=== PATIENT | female | born 1945 | race Caucasian/White ===

== ENCOUNTER → 2016-05-26 | Outpatient (CLI) | payer MEDICARE, OTHER ==
--- NOTE | 2016-05-26 13:08 | KCIC ---
PQRS STATEMENT One or more of the following individualized dose reduction techniques were utilized for this study:1.Automated exposure control. 2.Adjustment of the mA and/orkVaccording to patient size. 3.Use of iterative reconstruction technique CT chest. Indication: Reason For Study Reason: Productive cough for 8-10 weeks / Spl. Instructions: / History: Smoker TECHNIQUE Multiple contiguous axial images were obtained through the chest. Coronal reformations were created. Comparison: CT chest from May 21, 2015 Findings: There is no axillary adenopathy. Evaluation of the mediastinum and sherri are limited in the absence of IV contrast but no gross adenopathy is identified. The heart size is normal. There is no pericardial effusion. Coronary artery calcifications are noted. The thoracic aorta is normal in caliber. The lungs are clear with no evidence for infiltrate or consolidation. There is no pleural effusion or pneumothorax. Limited subdiaphragmatic evaluation is unremarkable. No destructive osseous lesion is identified. Impression: - Coronary artery disease. - No evidence for heart failure or pneumonia. Electronically signed by: Tenzin Syed (May 26, 2016 13:07:00)
== END | disposition home or self-care (01) ==
LOC: KCIC CT 10:42
PROVIDERS: ATTEND Internal Medicine Pulmonary Disease
DX: R05 Cough (principal); Z87.891 Personal history of nicotine dependence
CPT/HCPCS: 71250

== ENCOUNTER → 2016-06-04 | Outpatient (CLI) | payer MEDICARE, OTHER ==
--- NOTE | 2016-06-04 15:22 | KCIC ---
PROCEDURE Bilateral carotid duplex Doppler ultrasound. HISTORY Hypertension, smoker, carotid artery disease. TECHNIQUE Duplex sonography of the cervical portion of both carotid arteries was performed including color flow imaging and spectral waveform analysis with flow velocity measurement and mcmullen scale evaluation. COMPARISON None. FINDINGS Right side: Peak systolic flow velocity of the distal CCA is 59 cm/sec. Peak systolic flow velocity of the ICA is 92 cm/sec. Thus, the ICA/CCA ratio is 1.6. Peak end diastolic flow velocity of the ICA is 25 cm/sec. The peak systolic velocity of the ECA is 61 cm/sec. Left side: Peak systolic flow velocity of the distal CCA is 57 cm/sec. Peak systolic flow velocity of the ICA is 70 cm/sec. Thus, the ICA/CCA ratio is 1.2. Peak end diastolic flow velocity of the ICA is 29 cm/sec. Peak systolic flow velocity of the ECA is 47 cm/sec. No significant plaque formation is identified. Antegrade vertebral flow is seen bilaterally. IMPRESSION No evidence of hemodynamically significant internal carotid artery stenosis. PQRS compliance statement: Stenosis calculations for CT, MR and conventional angiography are based upon measurement of the distal ICA diameter in accordance with the NASCET methodology. Stenosis calculations for carotid ultrasound studies are derived from validated velocity criteria which are known to correlate with the NASCET methodology. Electronically signed by: David Ferreira MD (Jun 04, 2016 15:20:51)
== END | disposition home or self-care (01) ==
LOC: KCIC US 12:53
PROVIDERS: ATTEND Family Medicine
DX: I65.23 Occlusion and stenosis of bilateral carotid arteries (principal); Z72.0 Tobacco use
CPT/HCPCS: 93880

== ENCOUNTER → 2017-06-22 | Outpatient (CLI) | payer MEDICARE, OTHER | END | disposition home or self-care (01) | LOC: KCIC CT 10:52 | DX: J44.9 Chronic obstructive pulmonary disease, unspecified (principal); I25.10 Atherosclerotic heart disease of native coronary artery without angina pectoris; Z87.891 Personal history of nicotine dependence | CPT/HCPCS: 71250 ==

== ENCOUNTER → 2017-07-17 | Outpatient (CLI) | payer MEDICARE, OTHER | END | disposition home or self-care (01) | LOC: KCIC MRI 14:50 | DX: M51.37 Other intervertebral disc degeneration, lumbosacral region (principal); M48.061 Spinal stenosis, lumbar region without neurogenic claudication; M47.897 Other spondylosis, lumbosacral region; M25.78 Osteophyte, vertebrae; D18.09 Hemangioma of other sites; G89.29 Other chronic pain; R53.1 Weakness | CPT/HCPCS: 72148 ==

== ENCOUNTER → 2017-07-29 | Outpatient (CLI) | payer MEDICARE, OTHER ==
[~2017-07-29] MED LIST: IOHEXOL 180 MG/ML 10 ML VIAL.; methylPREDNISolone ACETATE 40 MG/ML VIAL.; methylPREDNISolone ACETATE 80 MG/ML VIAL.
== END ==
LOC: PNCL 11:24
DX: M51.16 Intervertebral disc disorders with radiculopathy, lumbar region (principal); M48.061 Spinal stenosis, lumbar region without neurogenic claudication; E11.9 Type 2 diabetes mellitus without complications; I10 Essential (primary) hypertension; I25.10 Atherosclerotic heart disease of native coronary artery without angina pectoris; K50.90 Crohn's disease, unspecified, without complications; J44.9 Chronic obstructive pulmonary disease, unspecified; M47.9 Spondylosis, unspecified; F17.210 Nicotine dependence, cigarettes, uncomplicated; E66.9 Obesity, unspecified; Z79.82 Long term (current) use of aspirin; M19.90 Unspecified osteoarthritis, unspecified site; Z91.018 Allergy to other foods; Z79.899 Other long term (current) drug therapy
CPT/HCPCS: 62323; J1030; J1040; Q9965

== ENCOUNTER → 2017-08-12 | Outpatient (CLI) | payer MEDICARE, OTHER | LOC: PNCL 09:58 | DX: M51.16 Intervertebral disc disorders with radiculopathy, lumbar region (principal) | CPT/HCPCS: 62323; J1030; J1040; Q9965 ==

== ENCOUNTER → 2017-09-15 | Outpatient (CLI) | payer MEDICARE, OTHER ==
[2017-09-16] MEDS: REGADENOSON 0.4 MG/5 ML DISP.SYRIN. IV (10:55)
== END | disposition home or self-care (01) ==
LOC: NM 08:30
DX: R07.9 Chest pain, unspecified (principal); R06.00 Dyspnea, unspecified; J44.9 Chronic obstructive pulmonary disease, unspecified; I10 Essential (primary) hypertension; R56.9 Unspecified convulsions; Z87.891 Personal history of nicotine dependence
CPT/HCPCS: 78452; 93017; 93306; 96374; 96375; 96376; A9500; J2785

== ENCOUNTER → 2017-10-29 | Outpatient (CLI) | payer MEDICARE, OTHER | END | disposition home or self-care (01) | LOC: KCIC 10:14 | DX: M19.011 Primary osteoarthritis, right shoulder (principal) | CPT/HCPCS: 73030 ==

== ENCOUNTER → 2017-11-26 | Outpatient (CLI) | payer MEDICARE, OTHER | END | disposition home or self-care (01) | LOC: KCIC MRI 12:42 | DX: M75.101 Unspecified rotator cuff tear or rupture of right shoulder, not specified as traumatic (principal) | CPT/HCPCS: 73221 ==

== ENCOUNTER → 2018-06-21 | Outpatient (CLI) | payer MEDICARE, OTHER ==
[~2018-06-21] MED LIST changes: +ACET-704 PO; +ASPI-482 PO; +ATOR20TA58 PO; +BENADRYL; +DIPH1TAB PO; +DULO60CA6 PO; +FLUT1DIS3 IH; +IBUP-1060 PO; -IOHEXOL 180 MG/ML 10 ML VIAL.; +IPRA3AMP29 NEB; +LISI10TA2 PO; +METH-38 PO; +MULT1TAB52 PO; +OMEG1CAP6 PO; +PRIM50TA PO; +SINUS; +TOPI100T8 PO; +TRIA10.8 NS; -methylPREDNISolone ACETATE 40 MG/ML VIAL.; -methylPREDNISolone ACETATE 80 MG/ML VIAL.
--- NOTE | 2018-06-21 14:49 | KCIC ---
CT CHEST WO CONTRAST Indication: Follow-up lung nodule, history of emphysema. Exposure: One or more of the following individualized dose reduction techniques were utilized for this examination: 1. Automated exposure control 2. Adjustment of the mA and/or kV according to patient size 3. Use of iterative reconstruction technique. Comparison: June 22, 2017 Contrast: None FINDINGS: Vascular structures: Limited exam without contrast. Mild aortic calcifications. No gross aneurysm. Lymph nodes:No significant enlargement Thyroid gland:Visualized aspect is unremarkable. Heart: Mild coronary artery calcifications Esophagus: Unremarkable Pleural spaces: No significant effusion Lungs: Tiny left upper lobe pulmonary nodule measures 3 mm. It is difficult to be certain if this is the same nodule, largest another nodule in the same area. No other masses are identified. No consolidated infiltrate. Trachea and central airways: Patent Spine: Degenerative spurring. Bones: No destructive process. Upper abdomen: Slices obtained through the upper most abdomen are limited by the noncontrast technique. No obvious acute findings. External Soft Tissue: No acute findings. Impression: 1. 3 mm left upper lobe pulmonary nodule, probably the same nodule as was seen previously, without increase in size. No new or larger nodule identified on today's exam. 2. No acute findings. Electronically signed by: Abhi Melendrez MD (06/21/2018 2:44 PM) [facility]
== END | disposition home or self-care (01) ==
LOC: KCIC CT 09:58
PROVIDERS: ATTEND Internal Medicine Pulmonary Disease
DX: R91.1 Solitary pulmonary nodule (principal); I70.0 Atherosclerosis of aorta; I25.10 Atherosclerotic heart disease of native coronary artery without angina pectoris; M46.04 Spinal enthesopathy, thoracic region; Z87.09 Personal history of other diseases of the respiratory system; Z87.891 Personal history of nicotine dependence
CPT/HCPCS: 71250

== ENCOUNTER → 2019-05-24 | Outpatient (CLI) | payer MEDICARE, OTHER ==
--- NOTE | 2019-05-25 23:46 | SLEEP ---
DATE OF STUDY: SLEEP STUDY ATTENDING PHYSICIAN: Butch Patel MD INDICATIONS FOR STUDY: The patient is a 73-year-old, who weighs 225 pounds with the body mass index of 41. The patient's Driscoll score was 11. The patient underwent split night study performed at [facility]. FINDINGS: During the night study, the patient spent 423 minutes in bed and slept for 331 minutes with a sleep efficiency of 78%. Sleep latency was 5 minutes with a REM latency of 284 minutes. Sleep architecture showed increased stage 1 and stage 2 sleep, normal slow wave, and normal REM sleep. During the initial diagnostic portion of the study, the patient slept for 106 minutes. During that time, the patient had 6 obstructive apneas, 46 mixed apneas, 16 central apneas, and 11 hypopneas. The patient's apnea-hypopnea index was 45 per hour with a supine index of 136 per hour. REM sleep was not seen during the diagnostic portion. EKG monitoring revealed an average heart rate of 79 beats per minute; no sustained arrhythmias observed. Periodic limb movements were seen at index of 2 per hour and none caused EEG arousals. Nocturnal oximetry study revealed an average oxygen saturation of 90% with the lowest of 83% and 65% of the time oxygen saturation remained between 80% and 89%. The patient met the criteria for CPAP initiation. It was started at 5 cm water and titrated up to 9 cm water. At the final pressure, the patient slept for 195 minutes. The patient had lateral REM sleep. The patient's apnea-hypopnea index was reduced to 1 per hour. Oxygen saturations remained mostly above 88%. The patient used medium-sized full face mask. IMPRESSION: 1. Severe sleep apnea-hypopnea syndrome at an apnea-hypopnea index of 45 per hour. 2. Nocturnal hypoxia secondary to obstructive sleep apnea and hypoventilation. 3. No clinically significant periodic limb movements. RECOMMENDATIONS: 1. CPAP at 9 cm water completely eliminated the patient's sleep apnea and should be used on a nightly basis. 2. Follow up in 4-6 weeks to assess compliance with CPAP and to document clinical improvement. 3. Weight loss is strongly advised. 4. Avoid [employer] depressants. 5. Cautioned regarding driving until symptoms of sleep apnea resolve with the use of CPAP. VERENICE VALDIVIA MD DR: NITA/faiza JOB#: [id number] / [id number] BUTCH Peralta MD
== END | disposition home or self-care (01) ==
LOC: SLPLAB 18:53
PROVIDERS: ATTEND Family Medicine
DX: G47.33 Obstructive sleep apnea (adult) (pediatric) (principal); G47.34 Idiopathic sleep related nonobstructive alveolar hypoventilation
CPT/HCPCS: 95810

== ENCOUNTER → 2020-01-16 | Outpatient (CLI) | payer MEDICARE, OTHER ==
[~2020-01-16] MED LIST changes: +MULT-445 PO; -MULT1TAB52 PO
--- NOTE | 2020-01-16 11:10 | KCIC ---
CT LOW DOSE LUNG SCREENING INDICATION: Reason: SMOKER, LUNG CANCER SCREENING. Smoker of over 50 yrs., 1.5 packs per day. Baseline lung screening. COMPARISON STUDY: Diagnostic CT chest 06/21/2018. TECHNIQUE: Unenhanced axial images were obtained through the lungs and upper abdomen using low dose technique. Coronal and sagittal multiplanar reformatted images were also obtained. PQRS compliance statement: One or more of the following individualized dose reduction techniques were utilized for this examination: 1. Automated exposure control 2. Adjustment of the mA and/or kV according to patient size 3. Use of iterative reconstruction technique FINDINGS: Lungs and Airways: Mild scattered bilateral centrilobular groundglass nodules with a few areas of ground glass opacity. Normal central airways. Pleura: Normal pleural spaces. Heart and Mediastinum: The visualized portions of the thyroid gland are normal in size and attenuation. No axillary or supraclavicular lymphadenopathy. No mediastinal, hilar or retrocrural lymphadenopathy. Normal cardiac size. Trace pericardial fluid, likely physiologic. Coronary artery atherosclerotic disease. Atherosclerosis of the thoracic aorta and branch vessels. Abdomen: The visualized abdominal organs demonstrate no abnormality. Bones and Soft Tissues: Degenerative changes of the spine. IMPRESSION: Mild scattered bilateral centrilobular groundglass nodules with a few areas of groundglass opacity, likely an infectious/inflammatory process. Lung-RADS Category: 2 Management Recommendation: Follow up low-dose chest CT in one year. Electronically signed by: French Albarran MD (01/16/2020 11:07 AM) [id number]
== END | disposition home or self-care (01) ==
LOC: KCIC CT 09:31
PROVIDERS: ATTEND Internal Medicine Pulmonary Disease
DX: Z12.2 Encounter for screening for malignant neoplasm of respiratory organs (principal); F17.210 Nicotine dependence, cigarettes, uncomplicated; R91.8 Other nonspecific abnormal finding of lung field; M47.819 Spondylosis without myelopathy or radiculopathy, site unspecified; I70.0 Atherosclerosis of aorta; I25.10 Atherosclerotic heart disease of native coronary artery without angina pectoris
CPT/HCPCS: G0297

== ENCOUNTER → 2020-07-26 | Outpatient (CLI) | payer MEDICARE, OTHER ==
[~2020-07-26] MED LIST changes: +GADOTERATE 7.5 MMOL/15ML VIAL. IVP ONE; +LISI10TA16 PO; -LISI10TA2 PO
--- NOTE | 2020-07-26 15:16 | KCIC ---
MRI of the Brain and orbits without and with Contrast 07/27/2011 Clinical History: Right eye proptosis for 4 months. Headaches. Technique: Unenhanced T1-weighted sagittal and axial and FLAIR, T2-weighted, gradient echo and diffus ion-weighted axial images of the brain were obtained. Additionally fat saturated thin section T1-weig hted axial and coronal and thin section T2 weighted coronal with and without fat saturation images th rough the orbits were obtained After the intravenous administration of 14 cc of CLARISCAN, enhanced T 1-weighted axial and coronal images of the brain were obtained. Additionally thin section fat saturat ed T1-weighted axial and coronal images through the orbits were obtained. Findings: There is generalized parenchymal atrophy. Patchy and several small scattered areas of incre ased signal intensity are seen within the periventricular and subcortical white matter of both cerebr al hemispheres along with the jose l on the FLAIR and T2-weighted images consistent with areas of small vessel ischemic disease. A small focal area of decreased signal intensity is seen involving left cer ebellar hemisphere on the gradient echo images. This measures 3 mm in size. There is no surrounding e ethan or associated mass affect. This most likely represents a cavernous angioma. No acute parenchymal abnormality is seen. No extra axial fluid collection is noted. There is no MRI e vidence of acute ischemia/infarction. Images through the orbits demonstrate the globes, extraocular muscles, optic nerve sheath complexes, optic chiasm and visualized portions of the optic tracts to be within normal limits. No abnormal soft tissue mass or area of abnormal contrast enhancement is noted. Mild mucosal thickening is seen scattered throughout the paranasal sinuses. There are minimal bilater al mastoid effusions. Normal flow voids are seen within the major vascular structures surrounding the brain parenchyma. IMPRESSION: 1. No acute parenchymal abnormality is seen. 2. Negative MRI of the orbits. Electronically signed by: Ankit Horn MD (07/26/2020 3:14 PM) [id number]
== END ==
LOC: KCIC MRI 08:33
PROVIDERS: ATTEND Family Medicine
DX: G31.9 Degenerative disease of nervous system, unspecified (principal); J34.89 Other specified disorders of nose and nasal sinuses; H05.20 Unspecified exophthalmos
CPT/HCPCS: 70543; 70553; A9575

== ENCOUNTER → 2021-06-19 | Outpatient (CLI) | payer MEDICARE, OTHER ==
[~2021-06-19] MED LIST changes: -DULO60CA6 PO; +DULO60CA7 PO; -GADOTERATE 7.5 MMOL/15ML VIAL. IVP ONE
--- NOTE | 2021-06-19 14:30 | KCIC ---
EXAM: Bilateral carotid duplex with waveform analysis. CLINICAL HISTORY: Carotid arterial disease. Slurred speech. TECHNIQUE: Longitudinal and transverse sonographic images of the bilateral carotid arteries was perfo rmed utilizing grayscale, color and spectral Doppler techniques. COMPARISON: None available FINDINGS: Right Carotid: No visible stenosis or significant plaque. Left Carotid: No visible stenosis or significant plaque. Vertebrals: Antegrade flow bilaterally. Right: PSV CCA (cm/s): 64 PSV ICA (cm/s): 48 EDV ICA (cm/s): 9 PSV ECA (cm/s): 112 ICA/CCA Ratio: 0.75 Left: PSV CCA (cm/s): 62 PSV ICA (cm/s): 75 EDV ICA (cm/s): 27 PSV ECA (cm/s): 100 ICA/CCA Ratio: 1.02 IMPRESSION: No hemodynamically significant stenosis identified. Consensus Panel Carias-scale and Doppler US Criteria for Diagnosis of ICA Stenosis Degree of Stenosis (%) ICA PSV (Cm/sec) Plaque Estimate (%)* Normal <125 None <50 <125 <50 50-69 125-230 >50 >70 but < near occlusion >230 >50 Near occlusion High, low, or undetectable Visible Total occlusion Undetectable Visible, no detectable lumen *Plaque estimate (diameter reduction) with carias-scale and color Doppler US Degree of Stenosis (%) ICA/CCA PSV Ratio ICA EDV (cm/sec) Normal <2.0 <40 <50 <2.0 <40 50-69 2.0-4.0 40-100 >70 but < near occlusion >4.0 >100 Near occlusion Variable Variable Total occlusion Not applicable Not applicable Electronically signed by: Samantha Brown MD (06/19/2021 2:27 PM) [id number]
--- NOTE | 2021-06-19 14:58 | KCIC ---
MRI BRAIN WO History:Reason: SLURRED SPEECH AND MEMORY CHANGES / Spl. Instructions: / History: Episodes of slurre d speech reported by family. Worsening S.T. memory loss. Technique: Multiplanar, multi sequential MR imaging was performed of the brain without contrast. Comparison: MRI July 26, 2020. Findings: No acute infarct. No intracranial hemorrhage. No mass effect. No hydrocephalus. Moderate brain parenchymal volume loss, unchanged. Mild foci of FLAIR hyperintensities within the hem ispheric white matter, most often due to chronic microvascular ischemia. Focal FLAIR hyperintensity w ithin the right inferior jose l on FLAIR is likely artifactual as not corroborated on additional images . Gradient hypointensity within the left cerebellum, likely related to prior microhemorrhage. Left infe rior basal ganglia prominent perivascular space. Imaged orbits are unremarkable. Imaged paranasal sinuses and mastoid air cells are clear. Impression: 1. No acute intracranial abnormality. 2. Moderate brain parenchymal volume loss. Electronically signed by: Phillip Giron DO (06/19/2021 2:56 PM) [facility]
== END ==
LOC: KCIC US 13:31
PROVIDERS: ATTEND Family Medicine
DX: G93.89 Other specified disorders of brain (principal); I77.9 Disorder of arteries and arterioles, unspecified; R47.81 Slurred speech; R41.3 Other amnesia
CPT/HCPCS: 70551; 93880

== ENCOUNTER → 2021-07-02 | Outpatient (CLI) | payer MEDICARE, OTHER ==
--- NOTE | 2021-07-02 12:53 | KCIC ---
EXAM: DUAL ENERGY X-RAY ABSORPTIOMETRY (DEXA). HISTORY: Postmenopausal screening. FINDINGS: The lowest measured T-score is -0.5 in the left hip, based on a bone mineral density of 0.8 75 g/cm^2. Refer to the worksheets for full detail. No comparison examinations are available. IMPRESSION: 1. Normal. Bone mineral density yields a T-score of -1.0 or greater. Fracture risk is low. 2. FRAX report: Not calculated. METHODOLOGY: Dual energy x-ray absorptiometry was performed to measure bone mineral density. The foll owing analysis is based on the 2019 Official Positions of the International Society for Clinical Dens itometry: Measurements of the hips and the average of L1-L4 are preferred. When the spine and/or hip cannot be feasibly measured or interpreted, or in the setting of hyperparathyroidism, distal radial bone minera l density may be measured. The lumbar spine T-score is based on the average bone mineral density of L1-L4. In the setting of art ifact or anatomic abnormality, some lumbar levels may be excluded, and the remaining levels used for calculation. A single lumbar level is not used for diagnosis, and if only a single level is available for assessment, another anatomic site will be used to assign a diagnosis. The hip T-score is based on the bone mineral density measurement of the femoral neck or total proxima l femur of either side, whichever is lowest. Bilateral mean values are not used for diagnosis. The forearm T-score is derived from 33% of the distal radius of the nondominant forearm. Electronically signed by: Melva Mckeon MD (07/02/2021 12:50 PM) [id number]
--- NOTE | 2021-07-02 12:54 | KCIC ---
EXAM: Pelvis and left hip, 2 views. HISTORY: Pain. COMPARISON: None. FINDINGS: A frontal view of the pelvis and frog-leg view the left hip are obtained. There is no fract ure, dislocation or subluxation. There is mild marginal left femoral head and acetabular spurring. Th ere is bilateral acetabular subchondral sclerosis and subchondral cyst formation. There is degenerati ve change involving the lower lumbar spine. There is bone demineralization. 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 Electronically signed by: Melva Mckeon MD (07/02/2021 12:51 PM) [id number]
== END ==
LOC: KCIC 10:45
PROVIDERS: ATTEND Family Medicine
DX: M16.0 Bilateral primary osteoarthritis of hip (principal); M81.8 Other osteoporosis without current pathological fracture; M76.892 Other specified enthesopathies of left lower limb, excluding foot; M25.552 Pain in left hip; Z78.0 Asymptomatic menopausal state
CPT/HCPCS: 73501; 77080

== ENCOUNTER → 2021-07-02 | Outpatient (CLI) | payer MEDICARE, OTHER ==
--- NOTE | 2021-07-02 14:56 | KCIC ---
EXAM: Lumbar spine MRI without contrast. HISTORY: Left hip pain. Lower back pain. TECHNIQUE: Multiplanar, multisequence magnetic resonance imaging of the lumbar spine was performed wi thout contrast. COMPARISON: 07/17/2017 FINDINGS: There is S-shaped lumbar scoliosis, with dextrocurvature centered at the upper lumbar level s and levocurvature centered at the lower lumbar levels. There is 5 mm grade 1 anterolisthesis of L5 on S1. There is 2 mm retrolisthesis of L1 on L2. There is multilevel endplate remodeling with disc sp selvin narrowing, osteophytosis and Schmorl's node formation. There is relative sparing of the disc spac e at L5-S1. There are multiple osseous hemangiomas. There is no suspicious osseous lesion. There is n o acute or subacute infarct. 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 The conus terminates at L1. At L1-L2, there is a right lateral recess to foraminal disc protrusion and slight inferior extrusion superimposed on a right lateral predominant disc bulge and endplate osteophytosis. There is mild righ t greater than left facet arthropathy. There is mild retrolisthesis. There is moderate right foramina l stenosis. There is mild central canal stenosis and narrowing of the right lateral recess. At L2-L3, there is a left lateral recess to foraminal disc protrusion superimposed on a left lateral predominant disc bulge and endplate osteophytosis. There is mild to moderate left facet arthropathy. There is mild right and mild to moderate left foraminal stenosis. There is mild central canal stenosi s and effacement of the left lateral recess. At L3-L4, there is a disc bulge and endplate osteophytosis. There is moderate bilateral facet arthrop athy. There is moderate left foraminal stenosis. There is mild to moderate central canal stenosis. At L4-L5, there is a disc bulge and endplate osteophytosis. There is moderate right greater than left facet arthropathy. There is mild left greater than right foraminal stenosis. There is mild to modera te central canal stenosis. At L5-S1, there is endplate remodeling. There is grade 1 anterolisthesis. There is moderate facet art hropathy. There is no stenosis. IMPRESSION: Multilevel degenerative change involving the lumbar spine, described in detail above. Thi s results in significant stenosis at the aforementioned levels. The right foraminal stenosis is most significant at L1-L2. The left foraminal stenosis is most significant at L3-L4. The central canal babita nosis is most significant at L3-L4 and L4-L5. Electronically signed by: Melva Mckeon MD (07/02/2021 2:53 PM) [id number]
== END ==
LOC: KCIC MRI 10:33
PROVIDERS: ATTEND Nurse Practitioner Family
DX: M47.26 Other spondylosis with radiculopathy, lumbar region (principal); G89.29 Other chronic pain; G96.191 Perineural cyst; R26.89 Other abnormalities of gait and mobility; M48.061 Spinal stenosis, lumbar region without neurogenic claudication; M43.17 Spondylolisthesis, lumbosacral region; M48.8X7 Other specified spondylopathies, lumbosacral region; M51.26 Other intervertebral disc displacement, lumbar region; D18.00 Hemangioma unspecified site; M51.46 Schmorl's nodes, lumbar region
CPT/HCPCS: 72148